=== PATIENT | female | born 1960 | race Caucasian/White ===

== ENCOUNTER 2023-04-28 08:21 | Outpatient (CLI) | payer BC, SELFPAY ==
[2023-04-28 08:40] VITALS: BP 174/84; PULSE 81; RESP 18; TEMP 36.8; O2SAT 99
[2023-04-28 09:25] VITALS: BP 160/80; PULSE 78; RESP 15; O2SAT 96
[2023-04-28] MEDS: DEXAMETHASONE 10 MG/ML VIAL INJ (09:26)
[2023-04-28] MEDS: iopamidoL 15 ML VIAL 3 ML INJ (09:27)
[2023-04-28] MEDS: BUPIVACAINE 0.5% (PF) 10 ML VIAL 2 ML INJ (09:27)
[2023-04-28 09:30] VITALS: BP 149/68; PULSE 73; RESP 16; O2SAT 97
--- NOTE | 2023-04-28 09:30 | DI.RAD.S_ITS ---
PROCEDURE: PAIN SI JOINT INJECTION INDICATIONS: JOINT DYSFUNCTION COMPARISON: None. FINDINGS: Fluoroscopic spot filming was performed to verify placement of spinal needles at the left SI joint, as labeled on the films. Appropriate location(s) of the needle tip(s) was confirmed by injection of iodinated contrast. IMPRESSION: Intra procedural examination demonstrating appropriate positions of the needles. Dictated by: Howie Bond M.D. on 04/28/2023 at 10:53 Approved by: Howie Bond M.D. on 04/28/2023 at 10:53
[2023-04-28 09:35] VITALS: BP 175/84; PULSE 75; RESP 18; O2SAT 97
--- NOTE | 2023-04-28 11:41 | P.PCN_ITS ---
Date/Time/Diagnoses Date of procedure: 04/28/23 Time of procedure: 09:30 Procedure Notes Physician: John Mckeon Total Fluoroscopy time (seconds): 9 Total sedation minutes: 0 Procedure in detail & Post-procedure care: Left Sacroiliac Joint Injection Indications: Aniya is presenting for treatment of SI joint dysfunction with low back/buttock pain. Preoperative diagnosis: Left SI joint dysfunction Postoperative diagnosis: Same Focused Examination: Ax3 Mood and affect are normal Vital Signs: VSS Consent: Following review of allergies and potential side effects/complications, including, but not necessarily limited to, infection, allergic reaction, local tissue breakdown, stroke, temporary or permanent nerve injury, paralysis, and possible , the patient indicated that they understood and agreed to proceed.? An informed consent document was signed by the patient, witnessed by a nurse and placed in the patient's chart.? Additionally, other treatment options including medications and physical therapy were reviewed with the patient. All questions were answered. Site was then marked. Anesthesia: Local Position: Prone Monitoring: NIBP, Pulse oximetry, 3 lead EKG Needle used: 22 ga, 3.5 inch spinal Contrast: 2 mL Isovue M-300 Injectate: Dexamethasone 7.5 mg with 1% lidocaine 2 mL Technique: The skin was prepped with chloraprep and then draped in a sterile fashion. Time out was performed as per protocol. Oxygen applied via NC. Skin and subcutaneous structures of the needle entry site was then infiltrated with 5 mL of lidocaine 1%. Under AP and lateral fluoroscopic control, the spinal needle was guided into the left sacroiliac joint. 1 mL contrast was injected and was consistent with intra-articular placement. There was no evidence for intravascular uptake. After negative aspiration, the above-mentioned injectate was then slowly administered and the needle withdrawn. The patient expressed no unusual discomfort or paresthesias during the injection. EBL: less than 1 ml Complications: None Post Procedure: Patient was taken to the recovery and monitored. The patient was provided a Pain Log to continue to record the patient's response to the target- specific procedure prior to the patient's follow-up visit with the referring physician. Patient was stable upon discharge. Detailed post procedure instructions were provided. Patient was asked to call in the event of worsening pain, fever, weakness, numbness or bladder or bowel incontinence.
== END 2023-04-28 09:40 | disposition home or self-care (01) ==
PROVIDERS: PCP Nurse Practitioner Family; Referring Provider Anesthesiology; Visit Provider Anesthesiology
DX: M53.3 Sacrococcygeal disorders, not elsewhere classified (principal)
CPT/HCPCS: 27096; 82962; G0260; J1100

== ENCOUNTER 2023-09-15 10:47 | Outpatient (CLI) | payer BC, SELFPAY ==
[2023-09-15 11:25] VITALS: BP 149/80; PULSE 96; RESP 18; TEMP 37.1; O2SAT 98
--- NOTE | 2023-09-15 11:30 | DI.RAD.S_ITS ---
PROCEDURE: PAIN SI JOINT INJECTION INDICATIONS: SI JOINT DYSFUNCTION COMPARISON: [facility], XA, PAIN SI JOINT INJECTION, 04/28/2023, 10:25. FINDINGS: Fluoroscopic spot filming was performed to verify placement of spinal needles at the left SI joint, as labeled on the films. Appropriate location(s) of the needle tip(s) was confirmed by injection of iodinated contrast. IMPRESSION: Intraoperative guidance provided. Dictated by: Mike Soto M.D. on 09/15/2023 at 16:30 Approved by: Mike Soto M.D. on 09/15/2023 at 16:30
[2023-09-15 11:46] VITALS: BP 159/73; PULSE 97; RESP 22; O2SAT 99
[2023-09-15] MEDS: iopamidoL 15 ML VIAL 3 ML INJ (11:47)
[2023-09-15] MEDS: methylPREDNISolone acet DEPO 40 MG/ML VIAL INJ (11:47)
[2023-09-15] MEDS: BUPIVACAINE 0.25% (PF) VIAL 2 ML INJ (11:48)
[2023-09-15 11:51] VITALS: BP 156/74; PULSE 88; RESP 16; O2SAT 99
[2023-09-15 11:55] VITALS: BP 140/67; PULSE 95; RESP 18; O2SAT 97
--- NOTE | 2023-09-15 16:57 | P.PCN_ITS ---
Date/Time/Diagnoses Date of procedure: 09/15/23 Time of procedure: 11:30 Procedure Notes Physician: John Mckeon Total Fluoroscopy time (seconds): 11 Total sedation minutes: 0 Procedure in detail & Post-procedure care: Left Sacroiliac Joint Injection Indications: Aniya is presenting for treatment of SI joint dysfunction with low back/buttock pain. Preoperative diagnosis: Left SI joint dysfunction Postoperative diagnosis: Same Focused Examination: Ax3 Mood and affect are normal Vital Signs: VSS Fingerstick glucose: 92 pre injection Consent: Following review of allergies and potential side effects/complications, including, but not necessarily limited to, infection, allergic reaction, local tissue breakdown, stroke, temporary or permanent nerve injury, paralysis, and possible , the patient indicated that they understood and agreed to proceed.? An informed consent document was signed by the patient, witnessed by a nurse and placed in the patient's chart.? Additionally, other treatment options including medications and physical therapy were reviewed with the patient. All questions were answered. Site was then marked. Anesthesia: Local Position: Prone Monitoring: NIBP, Pulse oximetry, 3 lead EKG Needle used: 22 ga, 3.5 inch spinal Contrast: 2 mL Isovue M-300 Injectate: Dexamethasone 7.5 mg with 1% lidocaine 2 mL Technique: The skin was prepped with chloraprep and then draped in a sterile fashion. Time out was performed as per protocol. Oxygen applied via NC. Skin and subcutaneous structures of the needle entry site was then infiltrated with 5 mL of lidocaine 1%. Under AP and lateral fluoroscopic control, the spinal needle was guided into the left sacroiliac joint. 1 mL contrast was injected and was consistent with intra-articular placement. There was no evidence for intravascular uptake. After negative aspiration, the above-mentioned injectate was then slowly administered and the needle withdrawn. The patient expressed no unusual discomfort or paresthesias during the injection. EBL: less than 1 ml Complications: None Post Procedure: Patient was taken to the recovery and monitored. The patient was provided a Pain Log to continue to record the patient's response to the target- specific procedure prior to the patient's follow-up visit with the referring physician. Patient was stable upon discharge. Detailed post procedure instructions were provided. Patient was asked to call in the event of worsening pain, fever, weakness, numbness or bladder or bowel incontinence.
== END 2023-09-15 11:59 | disposition home or self-care (01) ==
PROVIDERS: PCP Nurse Practitioner Family; Referring Provider Anesthesiology; Visit Provider Anesthesiology
DX: M53.3 Sacrococcygeal disorders, not elsewhere classified (principal)
CPT/HCPCS: 27096; J1010; J3490